=== PATIENT | female | born 1940 | race African-American/Black ===

== ENCOUNTER → 2018-01-30 | Outpatient (CLI) | payer OTHER | LOC: LAB.O 17:35 | PROVIDERS: ATTEND Psychiatry & Neurology Neurology | DX: M45.0 Ankylosing spondylitis of multiple sites in spine (principal); G60.3 Idiopathic progressive neuropathy; R53.83 Other fatigue; E11.9 Type 2 diabetes mellitus without complications; E55.9 Vitamin D deficiency, unspecified; E03.9 Hypothyroidism, unspecified; L40.59 Other psoriatic arthropathy; I73.00 Raynaud's syndrome without gangrene; G25.89 Other specified extrapyramidal and movement disorders; M32.10 Systemic lupus erythematosus, organ or system involvement unspecified; M31.6 Other giant cell arteritis; G50.0 Trigeminal neuralgia; F90.9 Attention-deficit hyperactivity disorder, unspecified type ==